=== PATIENT | female | born 1995 | race Caucasian/White ===

== ENCOUNTER → 2017-07-28 | Outpatient (CLI) | payer OTHER ==
--- NOTE | 2017-07-28 10:53 | Diagnostic Imaging Report ---
INDICATION: survey. TECHNIQUE: Multiple Real-time grayscale images were obtained over the gravid uterus. COMPARISON: None. MEASUREMENTS: Biometrical measurements are as follows: Biparietal 4.8 cm, age 20 weeks 5 days. Head circumference 18.19 cm, age 20 weeks 5 days. Abdominal circumference 14.76 cm, age 20 weeks 1 days. Femur length 3.27 cm, age 20 weeks 2 days. Sonographic estimate age: 20 weeks 4 days. Sonographic estimated date of delivery: 12/11/2017. Estimated Weight: 337 gm (+/- 49 gm). LMP percentile: 47%. heart rate: 150 beats per minute. number: 1 of 1. FINDINGS: A arriaga gestation is in cephalic position. The placenta is posterior with no abruption or previa. The nondilated cervix measures a normal 4.6 cm. There is no pathological finding appreciable at the anatomical survey; however, the four-chamber cardiac structures as well as the cord insertion could not be adequately characterized owing to position. The amniotic fluid volume is normal. IMPRESSION: The arriaga gestation is in cephalic position measuring 20 weeks 4 days with no pathological finding demonstrated. The position limits is anatomical survey, particularly at the 4 chambered heart and cord insertion. Dictated by: Dictated on workstation # [id number]
== END ==
LOC: RAD 09:56
PROVIDERS: ATTEND Obstetrics & Gynecology
DX: Z36.89 Encounter for other specified antenatal screening (principal); Z3A.20 20 weeks gestation of pregnancy
CPT/HCPCS: 76805

== ENCOUNTER → 2017-10-23 | Outpatient (CLI) | payer OTHER, MEDICAID ==
--- NOTE | 2017-10-23 13:29 | Diagnostic Imaging Report ---
INDICATION: Followup heart and cord insertion. TECHNIQUE: Multiple real-time grayscale images were obtained over the gravid uterus. COMPARISON: 07/28/2017 FINDINGS: There is a single living intrauterine in a cephalic presentation. The amniotic fluid index is 10. The placenta is posterior. There is no previa. Heart rate is 135 beats per minute. 4 chambered heart and three-vessel cord insertion were seen. The sonographically estimated gestation age by first ultrasound is 32 weeks 4 days. IMPRESSION: Limited followup ultrasound demonstrates 4-chamber heart and three-vessel cord insertion. Biometrical measurements are as follows: Biparietal cm, age weeks days. Head circumference cm, age weeks days. Abdominal circumference cm, age weeks days. Femur length cm, age weeks days. Sonographic estimate age: weeks days. Sonographic estimated date of delivery: . Estimated Weight: gm (+/- gm). LMP percentile: %. heart rate: beats per minute. number: of . IMPRESSION: Dictated by: Dictated on workstation # [id number]
== END ==
LOC: RAD 10:59
PROVIDERS: ATTEND Obstetrics & Gynecology
DX: Z36.89 Encounter for other specified antenatal screening (principal); Z3A.32 32 weeks gestation of pregnancy
CPT/HCPCS: 76816

== ENCOUNTER → 2017-11-24 | Outpatient (CLI) | payer OTHER, MEDICAID ==
[~2017-11-24] MED LIST: ACET-77 PO; FERR325T18 PO; IBUP-844 PO; PREN1TAB86 PO
--- NOTE | 2017-11-24 13:53 | Diagnostic Imaging Report ---
INDICATION: Size and date discrepancy. TECHNIQUE: Multiple real-time grayscale images were obtained over the gravid uterus. COMPARISON: 10/23/2017. FINDINGS: There is a single live fetus in a cephalic presentation. The placenta is lateral to the left. Amniotic fluid volume is normal. heart rate was recorded at 140 beats per minute. No gross abnormalities are seen. Biometrical measurements are as follows: Biparietal 9.5 cm, age 38 weeks 4 days. Head circumference 33.5 cm, age 38 weeks 2 days. Abdominal circumference 33.6 cm, age 37 weeks 4 days. Femur length 7.4 cm, age 37 weeks 5 days. Sonographic estimate age: 38 weeks 1 days. Sonographic estimated date of delivery: 12/07/17. Estimated Weight: 3294 gm (+/- 481 gm). LMP percentile: 73%. heart rate: 140 beats per minute. number: 1 of 1. IMPRESSION: Single live IUP at approximately 38 weeks gestational age demonstrating normal interval growth when compared with prior exams. No complicating features are detected. Dictated by: Dictated on workstation # [id number]
== END ==
LOC: RAD 12:07
PROVIDERS: ATTEND Obstetrics & Gynecology
DX: O26.843 Uterine size-date discrepancy, third trimester (principal); Z3A.38 38 weeks gestation of pregnancy
CPT/HCPCS: 76816

== ENCOUNTER 2017-12-04 08:47 | Outpatient (CLI) | payer OTHER, MEDICAID ==
[2017-12-04] VITALS (8 sets, daily range): BP systolic 111–124; BP diastolic 58–78
[~2017-12-04] VITALS: Ht 160 cm; Wt 75.3 kg
[2017-12-04 09:15] LABS: BILIRUBIN,URINE NEGATIVE (NEGATIVE); CLARITY,URINE CLEAR; COLOR,URINE YELLOW; GLUCOSE, URINE (UA) NEGATIVE (NEGATIVE); KETONES,URINE NEGATIVE (NEGATIVE); LEUKOCYTE ESTERASE ,URINE 1+ (NEGATIVE); NITRITE,URINE NEGATIVE (NEGATIVE); PH,URINE 6 (5-9); PROTEIN,URINE 1+ (NEGATIVE); UROBILINOGEN,URINE NORMAL (NORMAL)
[2017-12-04 09:25] LABS: BACTERIA,URINE MODERATE /HPF
[2017-12-04] MEDS ORDERED: PREN1TAB86 PO (12:28)
--- NOTE | 2017-12-05 12:54 | Physician Query-Final Dx ---
BOB LEWIS 12/05/17 1254: Clinic Account Progress/Dx Physician Query: Please give diagnosis Date of Service December 04, 2017 at 08:47 LUCY GONZALEZ DO 12/05/17 1319: Clinic Account Progress/Dx DIAGNOSIS: Diagnosis 38 week IUP Prolonged latent phase labor BOB LEWIS December 05, 2017 12:54 LUCY GONZALEZ DO December 05, 2017 13:19
== END 2017-12-04 13:25 | disposition home or self-care (01) ==
LOC: WSo 08:47 → LDRP 08:47 → WSo 13:25
PROVIDERS: ATTEND Obstetrics & Gynecology
DX: O62.0 Primary inadequate contractions (principal); Z3A.38 38 weeks gestation of pregnancy
CPT/HCPCS: 81000; 87088; 99213

== ENCOUNTER 2017-12-06 00:43 | Inpatient (IN) | payer OTHER, MEDICAID ==
[2017-12-06] VITALS (52 sets, daily range): BP systolic 107–132; BP diastolic 66–87
[~2017-12-06] VITALS: Ht 160 cm; Wt 73.7 kg
[~2017-12-06 00:43] MED LIST changes: -ACET-77 PO; -FERR325T18 PO; -IBUP-844 PO
[2017-12-06 01:06] LABS: BILIRUBIN,URINE NEGATIVE (NEGATIVE); CLARITY,URINE CLEAR; COLOR,URINE YELLOW; GLUCOSE, URINE (UA) NEGATIVE (NEGATIVE); KETONES,URINE NEGATIVE (NEGATIVE); LEUKOCYTE ESTERASE ,URINE 2+ (NEGATIVE); NITRITE,URINE NEGATIVE (NEGATIVE); PH,URINE 6.5 (5-9); PROTEIN,URINE NEGATIVE (NEGATIVE); UROBILINOGEN,URINE NORMAL (NORMAL)
[2017-12-06 01:13] LABS: BACTERIA,URINE MODERATE /HPF
[2017-12-06] MEDS ORDERED: LACTATED RINGERS 1,000 ML IV ONE ×2 (03:34→09:42)
[2017-12-06] MEDS ORDERED: MINERAL OIL CONCENTRATE 99.9% 15 ML UDC TOP PRN (03:45)
[2017-12-06] MEDS ORDERED: CATHETER FLUSH 10 ML SYR IV PRN ×2 (03:45→09:45)
[2017-12-06 04:08] LABS: BASOPHILS % (AUTO) 0 % (0-10); EOSINOPHILS % (AUTO) 0 % (0-10); HEMATOCRIT 35 % (35-52); HEMOGLOBIN 12.1 G/DL (11.5-16.0); LYMPHOCYTES # (AUTO) 1.7 X 10^3 (1.0-4.0); LYMPHOCYTES % (AUTO) 24 % (12-44); MEAN CORPUSCULAR HEMOGLOBIN 31 PG (25-34); MEAN CORPUSCULAR HGB CONC 34 G/DL (32-36); MEAN CORPUSCULAR VOLUME 90 FL (80-99); MONOCYTES # (AUTO) 0.7 X 10^3 (0.0-1.0); MONOCYTES % (AUTO) 9 % (0-12); NEUTROPHILS # (AUTO) 4.7 X 10^3 (1.8-7.8); NEUTROPHILS % (AUTO) 66 % (42-75); PLATELET COUNT 175 10^3/uL (130-400); RED CELL DISTRIBUTION WIDTH 13.7 % (10.0-14.5); WHITE BLOOD COUNT 7.1 10^3/uL (4.3-11.0)
[2017-12-06] MEDS: D5 LR IV SOLUTION 1,000 ML IV SCH ×2 (04:29→12:50)
--- OUTSIDE RECORDS SUMMARY | 2017-12-06 04:39 | XMS REPORT | Continuity of Care Document ---
Author Author [facility] Organization [facility] Address Unknown Phone Unavailable Allergies Active Description Code Type Severity Reaction Onset Reported/Identified Relationship to Patient Clinical Status Yes Sulfa (Sulfonamide Antibiotics) [id number] Drug Allergy Mild N/A 2017 Medications There is no data. Problems Date Dx Coded Attending Type Code Diagnosis Diagnosed By 02/03/2014 JAHAIRA DORSEY Ot 780.2 SYNCOPE AND COLLAPSE 02/03/2014 JAHAIRA DORSEY Ot 785.1 PALPITATIONS 07/28/2017 Ot 780.2 SYNCOPE AND COLLAPSE 07/28/2017 Ot 785.1 PALPITATIONS 07/31/2017 STILES DO, NICHOLAS C Ot Z36.89 ENCOUNTER FOR OTHER SPECIFIED 07/31/2017 STILES DO, NICHOLAS C Ot Z3A.20 20 WEEKS GESTATION OF 09/15/2017 STILES DO, NICHOLAS C Ot Z36.89 ENCOUNTER FOR OTHER SPECIFIED 09/15/2017 STILES DO, NICHOLAS C Ot Z3A.20 20 WEEKS GESTATION OF 10/06/2017 STILES DO, NICHOLAS C Ot Z36.89 ENCOUNTER FOR OTHER SPECIFIED 10/06/2017 STILES DO, NICHOLAS C Ot Z3A.20 20 WEEKS GESTATION OF 10/06/2017 STILES DO, NICHOLAS C Ot Z36.89 ENCOUNTER FOR OTHER SPECIFIED 10/06/2017 STILES DO, NICHOLAS C Ot Z3A.20 20 WEEKS GESTATION OF 10/23/2017 Ot 780.2 SYNCOPE AND COLLAPSE 10/23/2017 Ot 785.1 PALPITATIONS 10/23/2017 STILES DO, NICHOLAS C Ot Z36.89 ENCOUNTER FOR OTHER SPECIFIED 10/23/2017 STILES DO, NICHOLAS C Ot Z3A.20 20 WEEKS GESTATION OF 10/24/2017 STILES DO, NICHOLAS C Ot Z36.89 ENCOUNTER FOR OTHER SPECIFIED 10/24/2017 STILES DO, NICHOLAS C Ot Z3A.32 32 WEEKS GESTATION OF 2017 NICHOLAS STILES DO Ot O26.843 UTERINE SIZE-DATE DISCREPANCY, THIRD TRI 2017 NICHOLAS STILES DO Ot Z3A.38 38 WEEKS GESTATION OF 12/04/2017 Ot 780.2 SYNCOPE AND COLLAPSE 12/04/2017 Ot 785.1 PALPITATIONS Procedures There is no data. Results Test Result Range Complete urinalysis with reflex to culture - 12/04/17 08:55 Urine color determination YELLOW NRG Urine clarity determination CLEAR NRG Urine pH measurement by test strip 6 5-9 Specific gravity of urine by test strip 1.020 1.016- 1.022 Urine protein assay by test strip, semi-quantitative 1+ NEGATIVE Urine glucose detection by automated test strip NEGATIVE NEGATIVE Erythrocytes detection in urine sediment by light microscopy NEGATIVE NEGATIVE Urine ketones detection by automated test strip NEGATIVE NEGATIVE Urine nitrite detection by test strip NEGATIVE NEGATIVE Urine total bilirubin detection by test strip NEGATIVE NEGATIVE Urine urobilinogen measurement by automated test strip (mass/volume) NORMAL NORMAL Urine leukocyte esterase detection by dipstick 1+ NEGATIVE Automated urine sediment erythrocyte count by microscopy (number/high power field) NONE NRG Automated urine sediment leukocyte count by microscopy (number/high power field ) [HPF] NRG Bacteria detection in urine sediment by light microscopy MODERATE NRG Squamous epithelial cells detection in urine sediment by light microscopy 5-10 NRG Crystals detection in urine sediment by light microscopy NONE NRG Casts detection in urine sediment by light microscopy NONE NRG Mucus detection in urine sediment by light microscopy MODERATE NRG Complete urinalysis with reflex to culture NO NRG Bacterial urine culture - 12/04/17 08:55 URINE CULTURE RESULTS >100,000/ML NRG Complete urinalysis with reflex to culture - 12/06/17 00:55 Urine color determination YELLOW NRG Urine clarity determination CLEAR NRG Urine pH measurement by test strip 6.5 5-9 Specific gravity of urine by test strip 1.010 1.016- 1.022 Urine protein assay by test strip, semi-quantitative NEGATIVE NEGATIVE Urine glucose detection by automated test strip NEGATIVE NEGATIVE Erythrocytes detection in urine sediment by light microscopy NEGATIVE NEGATIVE Urine ketones detection by automated test strip NEGATIVE NEGATIVE Urine nitrite detection by test strip NEGATIVE NEGATIVE Urine total bilirubin detection by test strip NEGATIVE NEGATIVE Urine urobilinogen measurement by automated test strip (mass/volume) NORMAL NORMAL Urine leukocyte esterase detection by dipstick 2+ NEGATIVE Automated urine sediment erythrocyte count by microscopy (number/high power field) NONE NRG Automated urine sediment leukocyte count by microscopy (number/high power field ) [HPF] NRG Bacteria detection in urine sediment by light microscopy MODERATE NRG Squamous epithelial cells detection in urine sediment by light microscopy 10-25 NRG Crystals detection in urine sediment by light microscopy NONE NRG Casts detection in urine sediment by light microscopy NONE NRG Mucus detection in urine sediment by light microscopy SMALL NRG Complete urinalysis with reflex to culture YES NRG Encounters ACCT No. Visit Date/Time Discharge Status Pt. Type Provider Facility Loc./Unit Complaint [id number] 12/04/2017 08:47:00 12/04/2017 13:25:00 DIS Outpatient LUCY GONZALEZ DO [facility] WSo CONTRACTIONS [id number] 11/24/2017 12:07:00 11/24/2017 23:59:59 CLS Outpatient NICHOLAS STILES DO [facility] RAD O26.849 SIZE INCONSISTENT W/DATES [id number] 10/23/2017 10:59:00 10/23/2017 23:59:59 CLS Outpatient NICHOLAS STILES DO [facility] RAD F/U ON ANATOMY NOT SEEN [id number] 07/28/2017 09:56:00 07/28/2017 23:59:59 CLS Outpatient NICHOLAS STILES DO [facility] RAD SURVEY [id number] 11/05/2013 13:09:00 02/03/2014 00:01:00 DIS Outpatient JAHAIRA DORSEY [facility] CARD NEAR SYNCOPE, PALPITATIONS [id number] 12/06/2017 01:13:00 Document Registration [id number] 02/04/2014 13:00:00 Document Registration [id number] 09/28/2017 14:44:58 09/28/2017 23:59:59 CLS Outpatient Kaleb Blankenship [id number] 01/09/2017 10:24:26 01/09/2017 23:59:59 CLS Outpatient Sole Turner [id number] 10/08/2015 15:15:12 10/08/2015 23:59:59 CLS Outpatient Sole Turner [id number] 10/13/2014 15:35:25 10/13/2014 23:59:59 [facility] Outpatient Sole Turner
--- OUTSIDE RECORDS SUMMARY | 2017-12-06 04:39 | XMS REPORT ---
Author Author Sole Turner [facility] Address [address] [place], [place] [id number] Care Team Providers Care Return Clerk Name Role Phone Sole Turner PCP Unavailable Allergies and Adverse Reactions Name Reaction Notes NO KNOWN DRUG ALLERGIES Plan of Treatment Planned Activity Comments Planned Date Planned Time Plan/Goal CHLAMYDIA CULTURE 10/08/2015 12:00 AM N.GONORRHOEAE DNA AMP PROB 10/08/2015 12:00 AM Medications Active Name Start Date Estimated Completion Date SIG Comments Sprintec (28) 0.25-35 mg-mcg oral tablet 10/08/2015 09/08/2016 take 1 tablet by oral route once daily for 28 days Problem List Not available. Vital Signs Date Time BP-Sys(mm[Hg] BP-Yamileth(mm[Hg]) HR(bpm) RR(rpm) Temp WT HT HC BMI BSA BMI Percentile O2 Sat(%) 10/08/2015 2:27:00 PM 116 mmHg 67 mmHg 89 bpm 99.2 F 118 lbs 63 in 20.90 kg/m2 1.54 m2 39.8 % 10/13/2014 2:37:00 PM 106 mmHg 73 mmHg 89 bpm 98.2 F 116.5 lbs 63 in 20.6368 kg/m 1.5326 m 38.4 % Social History Name Description Comments Tobacco Never smoker History of Procedures Date Ordered Description Order Status 10/13/2014 3:35 PM URINE TEST Reviewed 10/13/2014 12:00 AM CHLAMYDIA CULTURE Returned 10/13/2014 12:00 AM N.GONORRHOEAE DNA AMP PROB Returned Results Summary Data and Description Results 10/13/2014 3:35 PM HCG Ur Ql negative History Of Immunizations Not available. History of Past Illness Name Date of Onset Comments *No known medical problems Routine gynecological examination Oct 13 2014 2:40PM Contraception, Oral Prescription Oct 13 2014 2:40PM Contraceptive Counseling Oct 13 2014 2:40PM Routine gynecological examination Oct 08 2015 2:30PM Contraception, Surveillance Oct 08 2015 2:30PM Payers Insurance Name Company Name Plan Name Plan Number Policy Number Policy Group Number Start Date [facility] [id number] N/A History of Encounters Visit Date Visit Type Provider 10/08/2015 Office visit Sole Turner OIL EXPLORATION ENGINEER 10/13/2014 Office visit Sole Turner OIL EXPLORATION ENGINEER
--- OUTSIDE RECORDS SUMMARY | 2017-12-06 04:39 | XMS REPORT ---
Author Author Sole Turner [facility] Address [address] [place], [place] [id number] Care Team Providers Care Chief Data Officer Name Role Phone Sole Turner PCP Unavailable Allergies and Adverse Reactions Name Reaction Notes NO KNOWN DRUG ALLERGIES Plan of Treatment Planned Activity Comments Planned Date Planned Time Plan/Goal Pap smear 01/09/2017 12:00 AM Chlamydia 01/09/2017 12:00 AM Gonorrhea 01/09/2017 12:00 AM TRICHOMONAS AMPLIFIED 01/09/2017 12:00 AM Medications Name Start Date Expiration Date SIG Comments Sprintec (28) 0.25-35 mg-mcg oral tablet 10/08/2015 09/08/2016 take 1 tablet by oral route once daily for 28 days Problem List Not available. Vital Signs Date Time BP-Sys(mm[Hg] BP-Yamileth(mm[Hg]) HR(bpm) RR(rpm) Temp WT HT HC BMI BSA BMI Percentile O2 Sat(%) 01/09/2017 9:27:00 AM 98 mmHg 79 mmHg 84 bpm 98 F 120 lbs 63 in 21.26 kg/m2 1.56 m2 10/08/2015 2:27:00 PM 116 mmHg 67 mmHg 89 bpm 99.2 F 118 lbs 63 in 20.9025 kg/m 1.5425 m 39.8 % 10/13/2014 2:37:00 PM 106 mmHg 73 mmHg 89 bpm 98.2 F 116.5 lbs 63 in 20.64 kg/m2 1.53 m2 38.4 % Social History Name Description Comments Tobacco Never smoker History of Procedures Date Ordered Description Order Status 10/08/2015 12:00 AM SPECIMEN HANDLING OFFICE-LAB Reviewed 10/08/2015 12:00 AM CHLAMYDIA CULTURE Reviewed 10/08/2015 12:00 AM N.GONORRHOEAE DNA AMP PROB Reviewed 10/13/2014 3:35 PM URINE TEST Reviewed 10/13/2014 12:00 AM CHLAMYDIA CULTURE Reviewed 10/13/2014 12:00 AM N.GONORRHOEAE DNA AMP PROB Reviewed Results Summary Date and Description Results 10/13/2014 3:35 PM HCG Ur Ql negative History Of Immunizations Not available. History of Past Illness Name Date of Onset Comments *No known medical problems Routine gynecological examination Oct 13 2014 2:40PM Contraception, Oral Prescription Oct 13 2014 2:40PM Contraceptive Counseling Oct 13 2014 2:40PM Routine gynecological examination Oct 08 2015 2:30PM Contraception, Surveillance Oct 08 2015 2:30PM Routine gynecological examination Jan 09 2017 9:30AM control counseling Jan 09 2017 9:30AM Payers Insurance Name Company Name Plan Name Plan Number Policy Number Policy Group Number Start Date [facility] [id number] N/A [id number] [id number] N/A History of Encounters Visit Date Visit Type Provider 01/09/2017 Office visit Sole Turner PULP AND PAPER TESTER 10/08/2015 Office visit Sole Turner PULP AND PAPER TESTER 10/13/2014 Office visit Sole Turner PULP AND PAPER TESTER
[2017-12-06] MEDS ORDERED: SUFENTA 0.6MCG/ML BUPIVA 0.125 100 ML ONE (07:26)
[2017-12-06] MEDS ORDERED: fentaNYL INJECTION 100 MCG/2 ML AMP ONE (07:31)
[2017-12-06] MEDS ORDERED: BUPIVACAINE 0.25% 30 ML (SENSORCAINE) VIAL ONE (07:31)
[2017-12-06] MEDS ORDERED: ONDANSETRON 4 MG/2 ML (SDV) Z0FRAN IV PRN (09:45)
[2017-12-06] MEDS ORDERED: NALOXONE 0.4 MG/ML 1 ML (NARCAN) VIAL IV PRN (09:45)
[2017-12-06] MEDS ORDERED: EPIDURAL (SUFENTA 0.6MCG/ML BUPIVA 0.125%) 100 ML BAG EPI SCH (09:45)
[2017-12-06] MEDS ORDERED: diphenhydrAMINE 50 MG/ML INJ (BENADRYL) IV PRN (09:45)
[2017-12-06] MEDS ORDERED: LIDOCAINE/EPI 2% 1:200,00 (XYLOCAINE) 10 ML VIAL ONE (11:54)
[2017-12-06] MEDS ORDERED: OXYTOCIN/NORMAL SALINE 500 ML IV ONE (11:55)
[2017-12-06] MEDS ORDERED: OXYTOCIN/NORMAL SALINE 500 ML IV SCH (13:55)
[2017-12-06] MEDS ORDERED: BENZOCAINE/MENTHOL (DERMOPLAST) 56 ML CAN TP PRN (14:00)
[2017-12-06] MEDS ORDERED: WITCH HAZEL(TUCKS) 40 EA JAR TOP PRN (14:00)
[2017-12-06] MEDS ORDERED: CATHETER FLUSH 10 ML SYR IV SCH (14:00)
[2017-12-06] MEDS ORDERED: ACETAMINOPHEN 500 MG TAB (TYLENOL) PO PRN (14:00)
[2017-12-06] MEDS ORDERED: TETANUS,DIPTH,PERTUSS P/F (BOOSTRIX) 0.5 ML VIAL IM ONE (14:00)
[2017-12-06] MEDS ORDERED: MEASLES,MUMPS,RUBELLA 1 EA INJ SQ ONE (14:00)
--- NOTE | 2017-12-06 14:00 | OB Labor & Delivery Record ---
Vag Delivery Note Vag Delivery Note Date of Delivery: 12/06/17 Preoperative Diagnosis: Megan Salazar is a 22 /Para 1 / 0,Gestational Age 38 6/7 weeks in active labor Postoperative Diagnosis: Same Surgeon: NICHOLAS STILES Infrastructure Project Manager: Kamran Mendoza, MS III Anesthesia: epidural Delivery Type: vaginal Findings: Viable male infant, apgars 9/9, weight 8#6oz Lacerations: 1st degree with vaginal extension, right labial/vaginal laceration. Intact placenta with 3 vessel cord. No nuchal cord, body cord or shoulder dystocia Estimated Blood Loss: 500 ml Complications: None Condition: Stable Description of Procedure: The patient is a 22 /Para 1 / 0,Gestational Age 38 6/7 weeks in active labor. She was admitted and informed consent was obtained. Her labor course was remarkable for AROM. She progressed to complete dilatation and began to push. She was then set up for delivery. The infant's head was delivered atraumatically in the SALONI position. The shoulders and remainder of the infant's body were then delivered without difficulty. Upon delivery, the head was held below the level of the perineum and the mouth and nares were bulb suctioned. The cord was doubly clamped and cut and the was handed off to the pediatric staff. An intact placenta with 3-vessel cord delivered via Taran and there was found to be minimal bleeding.~ Vigorous fundal massage was performed and the fundus was found to be firm. IV oxytocin was given. Examination of the vagina and perineum revealed a 1st degree with vaginal extension, right labial/vaginal laceration repaired in the usual fashion with 3- 0 vicryl suture. Following the repair, sponge, instrument and needle counts were correct. Mom and baby were both in stable condition in the labor suite. Vitals - Labs Vital Signs - I&O Vital Signs Date Time Temp Pulse Resp B/P (MAP) Pulse Ox O2 Delivery O2 Flow Rate FiO2 12/06/17 12:30 82 108/75 (86) 98 Room Air 12/06/17 12:15 83 107/71 (83) 97 Room Air 12/06/17 12:00 94 125/78 (94) 98 Room Air 12/06/17 11:45 90 122/78 (93) 99 Room Air 12/06/17 11:30 80 123/76 (92) 99 Room Air 12/06/17 11:15 93 132/87 (102) 99 Room Air 12/06/17 11:00 98.1 84 125/78 (94) 99 Room Air 12/06/17 10:45 78 122/68 (86) 98 Room Air 12/06/17 10:30 75 121/75 (90) 98 Room Air 12/06/17 10:15 76 115/75 (88) 99 Room Air 12/06/17 10:00 75 122/81 (95) 99 Room Air 12/06/17 09:45 100 120/85 (97) 99 Room Air 12/06/17 09:30 100 110/70 (83) 100 Room Air 12/06/17 09:15 103 118/77 (91) 100 Room Air 12/06/17 09:00 98.1 83 18 115/78 (90) 100 Room Air 12/06/17 08:45 86 111/75 (87) 99 Room Air 12/06/17 08:30 75 98 Room Air 12/06/17 08:24 79 115/71 (86) 100 Room Air 12/06/17 08:21 81 117/74 (88) 99 Room Air 12/06/17 08:18 76 120/74 (89) Room Air 12/06/17 08:15 82 117/75 (89) 98 Room Air 12/06/17 08:12 92 120/74 (89) 99 Room Air 12/06/17 08:09 114/67 (83) Room Air 12/06/17 08:06 95 115/70 (85) 99 Room Air 12/06/17 08:03 78 115/70 (85) Room Air 12/06/17 08:00 93 118/71 (87) 98 Room Air 12/06/17 07:55 91 131/70 (90) 98 Room Air 12/06/17 07:50 92 122/75 (91) 99 Room Air 12/06/17 07:45 85 122/69 (86) 100 Room Air 12/06/17 07:40 75 128/72 (90) 99 Room Air 12/06/17 07:15 75 127/79 (95) Room Air 12/06/17 06:58 99.7 12/06/17 06:45 71 18 119/78 (92) Room Air 12/06/17 06:15 65 18 118/77 (91) Room Air 12/06/17 05:45 81 18 118/76 (90) Room Air 12/06/17 05:15 79 18 116/75 (89) Room Air 12/06/17 04:43 73 18 112/73 (86) Room Air 12/06/17 04:15 74 18 123/80 (94) Room Air 12/06/17 03:45 68 18 123/82 (96) Room Air 12/06/17 00:55 98.2 71 18 119/77 (91) Room Air Labs Laboratory Tests 12/06/17 00:55: Urine Color YELLOW, Urine Clarity CLEAR, Urine pH 6.5, Urine Specific [place] 1.010L, Urine Protein NEGATIVE, Urine Glucose (UA) NEGATIVE, Urine Ketones NEGATIVE, Urine Nitrite NEGATIVE, Urine Bilirubin NEGATIVE, Urine Urobilinogen NORMAL, Urine Leukocyte Esterase 2+H, Urine RBC (Auto) NEGATIVE, Urine RBC NONE , Urine WBC 2-5, Urine Squamous Epithelial Cells 10-25H, Urine Crystals NONE, Urine Bacteria MODERATEH, Urine Casts NONE, Urine Mucus SMALLH, Urine Culture Indicated YES 12/06/17 03:50: White Blood Count 7.1, Red Blood Count 3.90L, Hemoglobin 12.1, Hematocrit 35, Mean Corpuscular Volume 90, Mean Corpuscular Hemoglobin 31, Mean Corpuscular Hemoglobin Concent 34, Red Cell Distribution Width 13.7, Platelet Count 175, Mean Platelet Volume 10.0, Neutrophils (%) (Auto) 66, Lymphocytes (%) (Auto) 24 , Monocytes (%) (Auto) 9, Eosinophils (%) (Auto) 0, Basophils (%) (Auto) 0, Neutrophils # (Auto) 4.7, Lymphocytes # (Auto) 1.7, Monocytes # (Auto) 0.7, Eosinophils # (Auto) 0.0, Basophils # (Auto) 0.0 Microbiology 12/06/17 Urine Culture - Preliminary, Resulted NICHOLAS STILES DO December 06, 2017 14:00
[2017-12-06] MEDS: IBUPROFEN 600 MG (MOTRIN) TAB PO SCH ×2 (14:54→21:15)
[2017-12-06] MEDS: DOCUSATE SODIUM 100 MG (COLACE) CAP PO SCH (21:14)
[2017-12-07] MEDS: IBUPROFEN 600 MG (MOTRIN) TAB PO SCH ×4 (03:01→20:00)
[2017-12-07 03:08] VITALS: BP 119/75
[2017-12-07 05:44] LABS: BASOPHILS % (AUTO) 0 % (0-10); EOSINOPHILS % (AUTO) 0 % (0-10); HEMATOCRIT 28 % (35-52); HEMOGLOBIN 9.7 G/DL (11.5-16.0); LYMPHOCYTES # (AUTO) 1.9 X 10^3 (1.0-4.0); LYMPHOCYTES % (AUTO) 23 % (12-44); MEAN CORPUSCULAR HEMOGLOBIN 31 PG (25-34); MEAN CORPUSCULAR HGB CONC 34 G/DL (32-36); MEAN CORPUSCULAR VOLUME 91 FL (80-99); MEAN PLATELET VOLUME 9.1 FL (7.4-10.4); MONOCYTES # (AUTO) 0.8 X 10^3 (0.0-1.0); MONOCYTES % (AUTO) 10 % (0-12); NEUTROPHILS # (AUTO) 5.6 X 10^3 (1.8-7.8); NEUTROPHILS % (AUTO) 67 % (42-75); PLATELET COUNT 146 10^3/uL (130-400); RED BLOOD COUNT 3.09 10^6/uL (4.35-5.85); RED CELL DISTRIBUTION WIDTH 13.4 % (10.0-14.5); WHITE BLOOD COUNT 8.4 10^3/uL (4.3-11.0)
[2017-12-07] MEDS ORDERED: PRENATAL VITAMIN 1 EA TAB PO SCH (07:00)
--- NOTE | 2017-12-07 07:50 | Anesthesia-Regional Post-Op ---
Regional Patient Condition Mental Status: Alert, Oriented x3 Circulation: Same as Pre-Op Headache: Absent Sensation: Full Recovery Motor Block: Absent Post Op Complications Complications None Follow Up Care/Instructions Patient Instructions None needed. Anesthesia/Patient Condition Patient is doing well, no complaints, stable vital signs, no apparent adverse anesthesia problems. No complications reported per nursing. HEMANT ARNOLD CRNA December 07, 2017 07:50
[2017-12-07] MEDS ORDERED: FERROUS SULF 325 MG (IRON) TAB PO SCH (08:00)
--- NOTE | 2017-12-07 09:05 | Postpartum Progress Note ---
Note Note Day # 1 s/p Subjective: Patient is without complaints. Ambulating, voiding. Tolerating a regular diet without nausea or vomiting. Normal lochia. Pain is well controlled with oral pain medications. breast feeding Objective: Laboratory Tests Test 12/07/17 05:38 Range/Units White Blood Count 8.4 4.3-11.0 10^3/uL Red Blood Count 3.09 L 4.35-5.85 10^6/uL Hemoglobin 9.7 L 11.5-16.0 G/DL Hematocrit 28 L 35-52 % Mean Corpuscular Volume 91 80-99 FL Mean Corpuscular Hemoglobin 31 25-34 PG Mean Corpuscular Hemoglobin Concent 34 32-36 G/DL Red Cell Distribution Width 13.4 10.0-14.5 % Platelet Count 146 130-400 10^3/uL Mean Platelet Volume 9.1 7.4-10.4 FL Neutrophils (%) (Auto) 67 42-75 % Lymphocytes (%) (Auto) 23 12-44 % Monocytes (%) (Auto) 10 0-12 % Eosinophils (%) (Auto) 0 0-10 % Basophils (%) (Auto) 0 0-10 % Neutrophils # (Auto) 5.6 1.8-7.8 X 10^3 Lymphocytes # (Auto) 1.9 1.0-4.0 X 10^3 Monocytes # (Auto) 0.8 0.0-1.0 X 10^3 Eosinophils # (Auto) 0.0 0.0-0.3 10^3/uL Basophils # (Auto) 0.0 0.0-0.1 10^3/uL 12/06/17 12/07/17 23:28 03:08 Temp 97.1 97.1 Pulse 90 85 Resp 18 18 B/P (MAP) 118/78 (91) 119/75 (90) Pulse Ox 97 98 O2 Delivery Room Air Room Air 12/07/17 00:00 Intake Total 2075 ml Balance 2075 ml Physical Exam: General - Alert and oriented, no apparent distress Abdomen - Soft, appropriately tender to palpation, non-distended, fundus firm at umbilicus Extremities - no edema, negative Kate's bilaterally Assessment: 1. post- day # 1, status post spontaneous vaginal delivery. Recovering well, hemodynamically stable Plan: Routine care. Encourage breast feeding. Encourage ambulation. Ferrous sulfate supplementation. Plan for discharge tomorrow Vitals - Labs Vital Signs - I&O Vital Signs Date Time Temp Pulse Resp B/P (MAP) Pulse Ox O2 Delivery O2 Flow Rate FiO2 12/07/17 03:08 97.1 85 18 119/75 (90) 98 Room Air 12/06/17 23:28 97.1 90 18 118/78 (91) 97 Room Air 12/06/17 19:32 96.8 82 18 117/78 (91) 99 Room Air 12/06/17 15:24 94 122/81 (95) Room Air 12/06/17 15:09 91 115/77 (90) Room Air 12/06/17 14:54 98.2 98 107/66 (80) Room Air 12/06/17 14:39 96 114/67 (83) Room Air 12/06/17 14:25 96 118/66 (83) Room Air 12/06/17 14:09 98.5 96 113/72 (86) Room Air 12/06/17 13:54 98.8 100 116/72 (87) Room Air 12/06/17 13:39 99.9 114 18 111/66 (81) Room Air 12/06/17 13:30 100 123/72 (89) Room Air 12/06/17 13:15 103 18 126/84 (98) Room Air 12/06/17 13:00 100 126/80 (95) 98 Room Air 12/06/17 12:45 107 118/79 (92) 98 Room Air 12/06/17 12:30 82 108/75 (86) 98 Room Air 12/06/17 12:15 83 107/71 (83) 97 Room Air 12/06/17 12:00 94 125/78 (94) 98 Room Air 12/06/17 11:45 90 122/78 (93) 99 Room Air 12/06/17 11:30 80 123/76 (92) 99 Room Air 12/06/17 11:15 93 132/87 (102) 99 Room Air 12/06/17 11:00 98.1 84 125/78 (94) 99 Room Air 12/06/17 10:45 78 122/68 (86) 98 Room Air 12/06/17 10:30 75 121/75 (90) 98 Room Air 12/06/17 10:15 76 115/75 (88) 99 Room Air 12/06/17 10:00 75 122/81 (95) 99 Room Air 12/06/17 09:45 100 120/85 (97) 99 Room Air 12/06/17 09:30 100 110/70 (83) 100 Room Air 12/06/17 09:15 103 118/77 (91) 100 Room Air I & O 12/07/17 07:00 Intake Total 3075 ml Balance 3075 ml Labs Laboratory Tests 12/07/17 05:38: White Blood Count 8.4, Red Blood Count 3.09L, Hemoglobin 9.7L, Hematocrit 28L, Mean Corpuscular Volume 91, Mean Corpuscular Hemoglobin 31, Mean Corpuscular Hemoglobin Concent 34, Red Cell Distribution Width 13.4, Platelet Count 146, Mean Platelet Volume 9.1, Neutrophils (%) (Auto) 67, Lymphocytes (%) (Auto) 23, Monocytes (%) (Auto) 10, Eosinophils (%) (Auto) 0, Basophils (%) (Auto) 0, Neutrophils # (Auto) 5.6, Lymphocytes # (Auto) 1.9, Monocytes # (Auto) 0.8, Eosinophils # (Auto) 0.0, Basophils # (Auto) 0.0 Microbiology 12/06/17 Urine Culture - Preliminary, Resulted NICHOLAS STILES DO December 07, 2017 09:05
[2017-12-07] MEDS ORDERED: FERR325T18 PO (09:07)
[2017-12-07] MEDS ORDERED: ACET-77 PO (09:07)
[2017-12-07] MEDS ORDERED: IBUP-844 PO (09:07)
[2017-12-07 09:52] VITALS: BP 107/73
[2017-12-07] MEDS: DOCUSATE SODIUM 100 MG (COLACE) CAP PO SCH ×2 (09:53→19:59)
[2017-12-07 16:37] VITALS: BP 114/72
--- NOTE | 2017-12-07 16:42 | Discharge Inst-Women's Service ---
Discharge Inst-Women's Serv Depart Medication/Instructions New, Converted or Re-Newed RX: RX on Chart Final Diagnosis labor acute blood loss anemia vaginal delivery epidural Consults/Follow Up Additional Follow Up: Yes (6 weeks ) Activity Activity: Activity as Tolerated Driving Instructions: You May Drive NO SMOKING: NO SMOKING Nothing Inside Vagina: No Douching, No [place], No Tampons Diet Discharge Diet: No Restrictions Symptoms to Report to : Swelling Increased, Bleeding Excessive, Pain Increased, Fever Over 101 Degrees F, Vaginal Bleeding Increase, Vaginal Discharge Foul For Any Problems or Questions: Contact Your Physician NICHOLAS STILES DO December 07, 2017 16:42
== END 2017-12-07 20:05 | disposition home or self-care (01) | DRG 775 ==
LOC: WSo 00:43 → LDRP 00:44 → WSo 03:37 → LDRP 15:44
PROVIDERS: ADMIT Obstetrics & Gynecology; ATTEND Obstetrics & Gynecology
PROC: 10E0XZZ Delivery of Products of Conception, External Approach (ICD-10-PCS; principal; 2017-12-06)
PROC: 0HQ9XZZ Repair Perineum Skin, External Approach (ICD-10-PCS; 2017-12-06)
DX: O70.0 First degree perineal laceration during delivery (principal); Z3A.38 38 weeks gestation of pregnancy; Z37.0 Single live birth
CPT/HCPCS: 36415; 81000; 85025; 86850; 86900; 86901; 87088; 99212